=== PATIENT | male | born 1930 | race Caucasian/White ===

== ENCOUNTER 2016-06-14 21:49 | Observation (INO) | payer OTHER, MEDICARE ==
[~2016-06-14] VITALS: Ht 182.9 cm; Wt 93.6 kg
[~2016-06-14 21:49] MED LIST: ASPIR-LOW81 MG PO; ATORVASTATIN CA40 MG PO; BYSTOLIC5 MG PO; CARDIZEM CD,CA180 MG PO; FENOFIBRATE145 M1 PO; FLONASE16 G1 BOTH NARES; JANUMET 50/11 TABLET PO; SERTRALINE HCL25 MG PO; VITAMIN B12-FO1 EACH PO; ZESTORETIC 20-1 EAC1 PO
[2016-06-14 23:11] LABS: EOSINOPHIL (%) 3.4 % (0-5); EOSINOPHIL COUNT 0.3 K/uL (0-0.3); HEMATOCRIT 36.6 % (38.0-50.0); IMMATURE GRANULOCYTE (%) 0.9 % (0.0-0.7); IMMATURE GRANULOCYTE COUNT 0.1 K/uL; INSTRUMENT ABS NEUTROPHIL CT 5.9 K/uL; LYMPHOCYTE COUNT 1.2 K/uL (1.0-2.8); MCH 29.2 PG (29.0-34.0); MCHC 34.7 G/DL (30.0-36.0); MCV 84.1 FL (86-99); MEAN PLAT.VOLUME 9.4 uM^3 (9.0-12.4); MONOCYTE (%) 7.7 % (3-12); MONOCYTE COUNT 0.6 K/uL (0-0.8); NEUTROPHIL (%) 72.8 % (45-76); NEUTROPHIL COUNT 5.9 K/uL (1.8-6.4); PLATELET COUNT 192 K/uL (156-360); RBC DIS.WIDTH-CV 12.1 % (11.8-14.6); RBC DIS.WIDTH-SD 36.7 % (39-53); RED BLOOD COUNT 4.35 M/uL (4.00-5.50); WHITE BLOOD COUNT 8.1 K/uL (4.1-10.2)
[2016-06-14 23:21] LABS: CHLORIDE 104 mEq/L (99-109); POTASSIUM 3.9 mEq/L (3.7-5.4); SODIUM 138 mEq/L (136-147)
[2016-06-14 23:22] LABS: INTER. NORMALIZED RATIO 1.1; PROTHROMBIN TIME 11.4 (9.2-11.2)
[2016-06-14 23:23] LABS: GLUCOSE 175 mg/dL (70-99)
[2016-06-14 23:24] LABS: ANION GAP 9 MEQ/L (2-14)
[2016-06-14 23:25] LABS: TOTAL BILIRUBIN 0.5 mg/dL (0.0-1.0)
[2016-06-14 23:27] LABS: ALKALINE PHOSPHATASE 71 IU/L (3-129); GFR ESTIMATE (CALCULATED) 44 mL/min/
[2016-06-14 23:28] LABS: UREA NITROGEN (BUN) 21 mg/dL (9-23)
[2016-06-14 23:30] LABS: LIPASE 36 U/L (1.0-51.0)
[2016-06-14 23:32] LABS: TROP-I INTERPRETATION NEGATIVE; TROPONIN-I 0.02 ng/mL (0.0-0.30)
[2016-06-15] MEDS ORDERED: FLOMAX0.4 MG PO
[2016-06-15 03:48] VITALS: BP 150/84
[2016-06-15 05:59] LABS: POINT-OF-CARE METER ID UU14162513
[2016-06-15 06:14] LABS: HEMATOCRIT 35.9 % (38.0-50.0); MCV 85.3 FL (86-99)
[2016-06-15 07:42] LABS: ALKALINE PHOSPHATASE 67 IU/L (3-129); ANION GAP 11 MEQ/L (2-14); CHLORIDE 105 MEQ/L (99-109); GFR ESTIMATE (CALCULATED) 51 mL/min/; GLUCOSE 160 mg/dL (70-99); POTASSIUM 3.9 MEQ/L (3.7-5.4); SAMPLE HEMOLYSIS CHECK 0; SAMPLE ICTERIC CHECK 0; SAMPLE LIPEMIA CHECK 0; SODIUM 142 MEQ/L (136-147); TOTAL BILIRUBIN 0.6 MG/DL (0.0-1.0); UREA NITROGEN (BUN) 28 mg/dL (9-23)
[2016-06-15 08:37] VITALS: BP 161/100
[2016-06-15 11:27] VITALS: BP 156/89
[2016-06-15 11:35] LABS: MCV 84.4 FL (86-99)
[2016-06-15 12:42] LABS: POINT-OF-CARE METER ID UU13113700
[2016-06-15 15:48] VITALS: BP 136/80
[2016-06-15 17:44] LABS: POINT-OF-CARE METER ID UU14162513
[2016-06-15 17:54] LABS: HEMATOCRIT 32.8 % (38.0-50.0); MCV 84.1 FL (86-99)
[2016-06-15 19:39] VITALS: BP 164/87
[2016-06-15 22:23] LABS: POINT-OF-CARE METER ID UU13113700
[2016-06-16 00:33] LABS: HEMATOCRIT 32.7 % (38.0-50.0); MCV 84.3 FL (86-99)
[2016-06-16 00:45] VITALS: BP 114/66
[2016-06-16 04:37] VITALS: BP 126/70
[2016-06-16 08:12] LABS: POINT-OF-CARE METER ID UU13113700
[2016-06-16 08:55] VITALS: BP 143/74
[2016-06-16 11:38] VITALS: BP 134/81
[2016-06-16 12:10] LABS: POINT-OF-CARE METER ID UU13113700
[2016-06-16] MEDS ORDERED: PROTONIX40 MG PO (13:58)
== END 2016-06-16 15:46 | disposition home or self-care (01) ==
LOC: EME → EDBD 21:49 → EDOF 06-15 02:27 → 5WEST 06-15 02:27
PROVIDERS: Emergency Medicine; Hospitalist; Internal Medicine
DX: K92.0 Hematemesis (principal); K92.1 Melena; N17.9 Acute kidney failure, unspecified; I35.0 Nonrheumatic aortic (valve) stenosis; I10 Essential (primary) hypertension; E11.9 Type 2 diabetes mellitus without complications; N40.0 Benign prostatic hyperplasia without lower urinary tract symptoms; E78.00 Pure hypercholesterolemia, unspecified; F32.9 Major depressive disorder, single episode, unspecified
CPT/HCPCS: 71020; 71250; 80053; 82948; 83605; 83690; 84484; 85014; 85018; 85025; 85610; 85730; 86850; 86900; 86901; 93005; 99281; 99285; C9113; G0378; G8979 GP CI; G8980 GP CI; J0360; J7030

== ENCOUNTER 2016-06-17 19:12 | Emergency (ER) | payer OTHER, MEDICARE ==
[~2016-06-17] VITALS: Ht 182.9 cm; Wt 91.2 kg
[~2016-06-17 19:12] MED LIST changes: +FLOMAX0.4 MG PO; +PROTONIX40 MG PO
[2016-06-17 20:15] LABS: HEMATOCRIT 33.9 % (38.0-50.0); MCH 28.9 PG (29.0-34.0); MCHC 34.2 G/DL (30.0-36.0); MCV 84.5 FL (86-99); MEAN PLAT.VOLUME 9.6 uM^3 (9.0-12.4); PLATELET COUNT 202 K/uL (156-360); RBC DIS.WIDTH-CV 12.2 % (11.8-14.6); RBC DIS.WIDTH-SD 37.2 % (39-53); RED BLOOD COUNT 4.01 M/uL (4.00-5.50); WHITE BLOOD COUNT 6.9 K/uL (4.1-10.2)
[2016-06-17 20:29] LABS: CHLORIDE 102 mEq/L (99-109); POTASSIUM 3.6 mEq/L (3.7-5.4); SODIUM 138 mEq/L (136-147)
[2016-06-17 20:31] LABS: GLUCOSE 144 mg/dL (70-99)
[2016-06-17 20:33] LABS: ANION GAP 11 MEQ/L (2-14)
[2016-06-17 20:35] LABS: GFR ESTIMATE (CALCULATED) 36 mL/min/
[2016-06-17 20:36] LABS: UREA NITROGEN (BUN) 28 mg/dL (9-23)
[2016-06-17 20:43] LABS: INTER. NORMALIZED RATIO 1.1; PROTHROMBIN TIME 10.8 (9.2-11.2); PTT 30.2 (25-32)
[2016-06-17 21:49] VITALS: BP 141/82
== END 2016-06-17 21:05 | disposition home or self-care (01) ==
LOC: EME 19:12
PROVIDERS: Emergency Medicine
DX: R04.2 Hemoptysis (principal); E11.9 Type 2 diabetes mellitus without complications; E78.5 Hyperlipidemia, unspecified; I10 Essential (primary) hypertension
CPT/HCPCS: 80048; 85027; 85610; 85730; 99281; 99284